=== PATIENT | female | born 1960 | race Caucasian/White ===

== ENCOUNTER 2018-10-18 11:42 | Outpatient (CLI) | payer OTHER | END 2018-10-18 11:43 | disposition home or self-care (01) | LOC: C.PAT 11:42 | DX: N84.0 Polyp of corpus uteri (principal) ==

== ENCOUNTER 2018-10-23 07:05 | Day surgery (SDC) | payer OTHER ==
[2018-10-10 10:17] VITALS: BMI 34.0
[2018-10-23] MEDS ORDERED: Midazolam 2 MG/2 ML VIAL ONE (08:56)
[2018-10-23] MEDS ORDERED: Propofol 10 mg/ml Inj (20 ML) ONE (08:57)
[2018-10-23] MEDS ORDERED: HYDROmorphone 0.5 mg/0.5 ml ISec IVP PRN (09:43)
[2018-10-23 10:13] VITALS: RESP 11; O2SAT 100
[2018-10-23 10:58] VITALS: PULSE 63; TEMP 97.6
[2018-10-23 12:07] VITALS: BP 119/68
--- NOTE | 2018-10-23 21:33 | OP ---
PROCEDURE DATE: 10/23/2018 PREOPERATIVE DIAGNOSES: Post menopausal bleeding, endometrial polyp, history of breast cancer, and pelvic organ prolapse. POSTOPERATIVE DIAGNOSES: Post menopausal bleeding, endometrial polyp, history of breast cancer, and pelvic organ prolapse with uterine septum and submucosal myoma. PROCEDURE: Hysteroscopic uterine wall resection, hysteroscopic myomectomy, polypectomy, dilation and curettage. TYPE OF ANESTHESIA: General LMA. OPERATIVE FINDINGS: Enlarged 10 weeks' size uterus with stage 3-4 uterovaginal prolapse. Uterine septum noted that was carefully removed under direct visualization. Bilateral ostia visualized with enlarged polypoid type mass within the cavity, large, and also submucosal myoma carefully resected. Good hemostasis noted. ESTIMATED BLOOD LOSS: 5 mL. BLOOD PRODUCTS: None. COMPLICATIONS: None. SPECIMEN: Uterine wall, submucosal myoma, endometrial polyp, endocervical curettings, endometrial curettings. DESCRIPTION OF PROCEDURE: The patient was taken to the operating room where she was given general anesthesia. Once it was found to be adequate, she was placed on the operating table in dorsal supine position with legs supported using stirrups. The patient was then prepped and draped in the usual sterile fashion. A bimanual exam was performed. The prolapse was then reduced. Following this, endocervical curettings were obtained with a [place] [facility] curette and sent to Pathology on [facility]. Tenaculum was placed on the anterior and posterior lips of the cervix, which was unable to be sounded. It was carefully dilated at this point. A hysteroscope was inserted and the uterine wall was noted to be occluding the cavity with bilateral ostia visualized posterior to this. MyoSure device was then carefully inserted and carefully removed partially to allow for removal. Then the uterus was then able to be sounded. Following cervical dilation, the hysteroscope was then reinserted under direct visualization using normal saline as the distention media. Bilateral ostia were visualized and a submucosal myoma noted on the anterior uterine wall and the endometrial polypoid tissue noted along with a posterior polyp of 1 to 1.5 cm approximately noted to be within the cavity. MyoSure device was then inserted. The mass was then carefully resected. Gentle curettage was done. All instruments were removed. There was good hemostasis noted at the at the tenaculum puncture site. At the end of the procedure, all needle, sponge, and instrument counts were noted to be correct. The patient tolerated the procedure well and was transferred to the recovery room in stable condition. Amanda Wilson MD
== END 2018-10-23 12:35 | disposition home or self-care (01) ==
LOC: C.SDS 07:05
PROVIDERS: ATTEND Obstetrics & Gynecology
DX: N84.0 Polyp of corpus uteri (principal); N95.0 Postmenopausal bleeding; Z85.3 Personal history of malignant neoplasm of breast
CPT/HCPCS: 58558; 82948; 88305; J1170; J1885; J2001; J2250; J2405; J2704; J3010